=== PATIENT | female | born 1970 | race Caucasian/White ===

== ENCOUNTER 2019-01-25 17:05 | Emergency (ER) | payer SELFPAY ==
[2019-01-25] MEDS: ONDANSETRON (ODT) 4 MG TAB ODT (19:14)
[2019-01-25] MEDS: morphine 4 MG/ML VIAL IM (19:14)
== END 2019-01-25 21:30 | disposition home or self-care (01) ==
LOC: FTE 17:05
DX: M54.2 Cervicalgia (principal); M79.631 Pain in right forearm; M79.661 Pain in right lower leg; M79.671 Pain in right foot
CPT/HCPCS: 29125; 70450; 72050; 73090-RT; 73130-RT; 73590; 73630; 81025; 96372; 99285-25